=== PATIENT | female | born 1955 | race African-American/Black ===

== ENCOUNTER 2018-09-06 09:34 | Outpatient (CLI) | payer OTHER ==
--- NOTE | 2018-09-06 12:14 | MRI ---
RIGHT KNEE MRI WITH IV CONTRAST: Date: 09/06/18 HISTORY: 63-year-old female with history of internal derangement, M23.91, right knee pain after a fall on 01/14. TECHNIQUE: Multiplanar, multisequence MRI examination of the right knee is performed. FINDINGS: Abnormal joint effusion with some distention of the suprapatellar recess. There is extensive complex flap tear of the lateral meniscus extending from the posterior horn into the body and into the anteri or horn. There is a fairly extensive horizontal component noted as well, particularly in the anterior horn. There is a small subchondral cystic focus involving the lateral tibial plateau with some surro unding adjacent abnormal marrow edema. There is some moderate cartilage loss of all three compartment s. There is also evidence for tear involving the medial meniscus, including an undersurface component of the posterior horn with abnormal signal extending into the body, evidence for probable flap tear. Th e anterior and posterior cruciate ligaments, collateral ligament complexes, and quadriceps and patell ar tendons are intact. Minimal linear stranding-type changes in the suprapatellar bursa, possibly mil d synovitis or capsulitis. Somewhat dilated popliteal hiatus. IMPRESSION: Bilateral meniscal tears. Small subchondral cystic focus of the lateral tibial plateau with adjacent marrow edema. Tiny subchondral cystic focus of the medial tibia. Joint effusion with some minimal porter ear foci possibly representing some synovitis/capsulitis. No evidence for other significant acute int ernal derangement. POS: [facility]
== END 2018-09-06 09:35 | disposition home or self-care (01) ==
LOC: BICMRI 09:34
PROVIDERS: ATTEND Family Medicine
DX: M23.91 Unspecified internal derangement of right knee (principal); S83.281A Other tear of lateral meniscus, current injury, right knee, initial encounter; S83.241A Other tear of medial meniscus, current injury, right knee, initial encounter; R60.0 Localized edema; M25.461 Effusion, right knee

== ENCOUNTER 2019-07-24 19:32 | Emergency (ER) | payer MEDICARE, MEDICAID ==
--- NOTE | 2019-07-24 21:58 | RAD ---
Exam:Right hand 3 views HISTORY: Pain COMPARISON: None FINDINGS: No fracture. No cortical irregularity. No periosteal reaction. Degenerative changes of the first carpal metacarpal joint space. Additionally, degenerative changes in the scaphoid trapezium joints. There is loss of joint space height with mild osteophyte formation. IMPRESSION: Degenerative changes involving the right hand as described above. No fracture.
[2019-07-24 22:12] LABS: #Basophils 0.1 thou/uL (0.0-0.2); #Eosinphils 0.7 thou/uL (0.0-0.7); #Lymphocytes 2.1 thou/uL (1.20-3.40); #Monocytes 0.7 thou/uL (0.11-0.59); #Neutrophils 5.5 thou/uL (1.40-6.50); %Eosinophils 7.8 % (0.0-10.0); %Lymphocytes 23.3 % (21.0-51.0); %Monocytes 7.2 % (0.0-10.0); %Neutrophils 60.8 % (42.0-75.0); Hemoglobin 13.9 g/dL (12.0-16.0); Mean Corpuscular Hemoglobin 29.9 pg (27.0-31.0); Mean Platelet Volume 7.3 fL (7.4-10.4); Platelet Count 371 thou/uL (130-400); RBC Distribution Width 12.4 % (11.5-14.5); Red Blood Cell (RBC) Count 4.64 mill/uL (4.20-5.40)
[2019-07-24] MEDS ORDERED: HYDROcodone/Acetaminophen 5/325 mg Tablet ONE (22:50)
== END 2019-07-24 22:50 | disposition home or self-care (01) ==
LOC: ERS 19:32
DX: M10.9 Gout, unspecified (principal)
CPT/HCPCS: 84550; 85025

== ENCOUNTER 2020-10-13 09:25 | Emergency (ER) | payer MEDICARE, MEDICAID ==
[2020-10-13 19:58] LABS: SARS-CoV-2 MS2 Positive; SARS-CoV-2 N Gene Positive; SARS-CoV-2 S Gene Positive; SARS-CoV-2 by NAA DETECTED (NotDetected); SARS-CoV-2 orf1ab Positive
== END 2020-10-13 09:49 | disposition home or self-care (01) ==
LOC: ERS 09:25
DX: U07.1 COVID-19 (principal); E11.9 Type 2 diabetes mellitus without complications; E78.5 Hyperlipidemia, unspecified; E78.00 Pure hypercholesterolemia, unspecified; I10 Essential (primary) hypertension; Z79.84 Long term (current) use of oral hypoglycemic drugs; Z79.899 Other long term (current) drug therapy
CPT/HCPCS: 99283; U0003; 87635

== ENCOUNTER 2021-10-26 23:37 | Emergency (ER) | payer MEDICARE, MEDICAID ==
[2021-10-27] MEDS ORDERED: HYDROcodone/Acetaminophen 10/325 mg Tablet ONE (00:11)
== END 2021-10-27 01:33 | disposition home or self-care (01) ==
LOC: ERS 23:37
DX: S83.92XA Sprain of unspecified site of left knee, initial encounter (principal); S80.12XA Contusion of left lower leg, initial encounter; I10 Essential (primary) hypertension; E11.9 Type 2 diabetes mellitus without complications; E78.5 Hyperlipidemia, unspecified; E78.00 Pure hypercholesterolemia, unspecified; W01.0XXA Fall on same level from slipping, tripping and stumbling without subsequent striking against object, initial encounter
CPT/HCPCS: 72170

== ENCOUNTER 2023-07-05 12:54 | Emergency (ER) | payer OTHER, MEDICAID | END 2023-07-05 14:31 | disposition home or self-care (01) | LOC: ERS 12:54 | DX: S09.90XA Unspecified injury of head, initial encounter (principal); M54.2 Cervicalgia; E11.9 Type 2 diabetes mellitus without complications; E78.00 Pure hypercholesterolemia, unspecified; I10 Essential (primary) hypertension; Z79.899 Other long term (current) drug therapy; V49.9XXA Car occupant (driver) (passenger) injured in unspecified traffic accident, initial encounter | CPT/HCPCS: 70450; 72125 ==